=== PATIENT | male | born 1995 | race Caucasian/White ===

== ENCOUNTER 2016-11-02 08:33 | Day surgery (SDC) | payer OTHER ==
[2016-10-25 16:27] VITALS: BMI 33.3
[~2016-11-02 08:33] MED LIST: BACITRACIN 50,000 UNIT, POLYMYXIN B 500,000 UNIT in SODIUM CHLORIDE 0.9% IRRIGATIO 1,00... IRRIGATION ONE; CLINDAMYCIN 600 MG in DEXTROSE 5% IN WATER 50 ML IVPB ONE; DEXAMETHASONE SOD PHOSPHATE 10 MG/ML 1 ML VIAL IV ONE; FAMOTIDINE 20 MG/2 ML VIAL IV PRN; HYDROmorphone 1 MG/ML 1 ML SYRINGE IVP PRN; LACTATED RINGERS 1,000 ML IV SCH; LIDOCAINE 1% 20 ML VIAL (10MG/ML) FOR IV START INTRADERMA PRN; MIDAZOLAM 2 MG/2 ML VIAL IV PRN; ONDANSETRON 4 MG/2 ML VIAL IVP ONE; SCOPOLAMINE 1.5MG/72HR PATCH TRANSDERM ONE
[2016-11-02 09:28] VITALS: TEMP 98
[2016-11-02] MEDS ORDERED: PHENYLEPHRINE-0.9% NACL SYG 1 MG/10 ML SYRINGE ONE (11:02)
[2016-11-02] MEDS ORDERED: fentaNYL (PF) 50 MCG/ML 2 ML AMP ONE (11:02)
[2016-11-02] MEDS ORDERED: PROPOFOL 10 MG/ML 20 ML VIAL IV ONE (11:02)
[2016-11-02] MEDS ORDERED: MIDAZOLAM 2 MG/2 ML VIAL ONE (11:02)
[2016-11-02] MEDS ORDERED: VECURONIUM 10 MG VIAL IV ONE (11:02)
[2016-11-02] MEDS ORDERED: LIDOCAINE 1% INJ 10MG/ML (20 ML MDV) ONE (11:02)
[2016-11-02] MEDS ORDERED: GLYCOPYRROLATE 0.2 MG/ML 2 ML VIAL ONE ×2 (11:02)
[2016-11-02] MEDS ORDERED: NEOSTIGMINE 1 MG/ML 10 ML VIAL ONE (11:02)
[2016-11-02] MEDS ORDERED: SUCCINYLCHOLINE CHLORIDE 100 MG/5 ML SYR IV ONE (11:02)
[2016-11-02] MEDS ORDERED: LIDOCAINE 0.5%-EPI 1:200,000 50 ML VIAL SQ ONE (11:38)
[2016-11-02] MEDS ORDERED: GELATIN SPONGE,ABSORB (LARGE) 1 EACH SPONGE TOPICAL ONE (11:38)
[2016-11-02] MEDS ORDERED: THROMBIN (BOVINE) 5,000 UNIT VIAL TOPICAL ONE (11:39)
--- NOTE | 2016-11-02 12:05 | FL ---
FLUOROSCOPY 4 seconds of fluoroscopy time were utilized during lumbar discectomy. 1 images document the procedure .
[2016-11-02] MEDS ORDERED: methylPREDNISolone ACETATE 80 MG/ML 1 ML VIAL INTRAARTIC ONE (12:11)
[2016-11-02] MEDS ORDERED: KETOROLAC 30 MG/ML 1 ML VIAL IVP PRN (12:33)
[2016-11-02] MEDS ORDERED: HYDROmorphone 1 MG/ML 1 ML SYRINGE IVP PRN ×2 (12:33)
[2016-11-02] MEDS ORDERED: DIAZEPAM 5 MG TAB PO PRN (12:33)
[2016-11-02] MEDS ORDERED: HYDROcodone/APAP 5-325MG 1 EACH TAB PO PRN ×2 (12:33)
[2016-11-02] MEDS ORDERED: BENZOCAINE/MENTHOL LOZENG 1 EACH LOZENGE MUCOUS MEM PRN (12:33)
[2016-11-02] MEDS ORDERED: ONDANSETRON 4 MG/2 ML VIAL IVP PRN (12:33)
[2016-11-02] MEDS ORDERED: IBUPROFEN 600 MG TAB PO PRN (12:33)
--- NOTE | 2016-11-02 12:43 | P.OP ---
Date of Procedure: 11/02/16 Preoperative Diagnosis: Herniated nucleus pulposis L5-S1 Postoperative Diagnosis: Same plus degenerative disc disease L5-S1 Anesthesia: GETA Pathology: none sent Condition: stable Disposition: PACU Description of Procedure: BRIEF OPERATIVE NOTE Preoperative Diagnosis: Herniated nucleus pulposis L5-S1 Postoperative Diagnosis: Same plus degenerative disc disease L5-S1 Procedure: Laminectomy and decompression L5-S1 Discectomy for decompression L5-S1 Use of fluoroscopic guidance Surgeon: Dr. Andujar Structural Layout Worker: Jean-Paul Castaneda is present throughout the entire the case persistence during positioning, dissection, exposure, visualization, and all crucial elements of the case as well as closure. Anesthesia: General anesthesia Estimated blood loss: Approximately 50 mL Complications: None apparent Components implanted: None Disposition: To recovery room in good stable condition. OPERATIVE INDICATIONS The patient has been having issues in their lower back and lower extremities. He was found have a disc herniation L5-S1 on the left which correlated well with his low back and left lower extremity symptoms. The patient has been through conservative treatment. He does not have any lasting benefit despite aggressive conservative treatment. We discussed various treatment options including surgery, and the patient wishes to proceed with surgery We discussed the risk, patient's alternatives and benefits of surgery including but not limited to, risk of bleeding risk of infection, risk of need for further surgery , risk of decreased, loss of motion, loss of function, nerve damage, paralysis, heart attack, blindness and . OPERATIVE SUMMARY After discussing all the risks, patient alternatives and benefits at length, the patient elected to proceed with surgical intervention, signed informed consent, and presented for their procedure. The patient was seen and examined in the preoperative holding area and the surgical site was marked. The patient was given antibiotics and brought to the operating room. The patient was sedated and intubated by anesthesia in standard fashion. The patient was positioned on to the operating room table in a prone position on the appropriate frame which was well-padded and well molded. We were careful to pad any bony prominences and pressure points. We were careful to maintain the patient's cervical spine and good neutral alignment and position throughout. The patient was prepped and draped in a normal standard fashion. An appropriate timeout and keystone protocol performed. We were able to proceed with the surgery. Fluoroscopy was utilized to establish the appropriate level. The local wound area was infiltrated with local anesthetic. An incision was made at the midline longitudinally over the appropriate levels over L5-S1. Dissection was taken down subcutaneously to the level of the fascia which was split midline. Dissection was taken over the lamina. Intraoperative fluoroscopy was taken which showed a marker at the appropriate level at L5-S1. With the appropriate level positively confirmed, we were able to proceed with laminectomy. The wound was copiously irrigated and suctioned dry as had been done periodically throughout the case. I performed a laminectomy with a combination of curettes and a high-speed bur and Kerrison rongeurs. A small medial facetectomy was performed again further access. A partial foraminotomy was also performed. Portions of the ligamentum flavum were taken down to expose the dura and traversing nerve root. I was able to mobilize the traversing nerve root and gain access to the disc space. Note was made of obvious compression from the disc. Protecting the soft tissue structures, a small annulotomy was established. I was able to perform discectomy and remove any extruded disc fragments and any loose fragments from within the disc itself. There were multiple large extruded disc fragments which were removed. There is some significant disc desiccation noted. I tried to preserve the disc annulus that appeared stable. There were no further extruded fragments noted. There is no evidence of dural tear or leak. Good hemostasis maintained. The wound was copiously irrigated and suctioned dry. Good decompression and discectomy was noted. We were able to proceed with closure. The fascia was closed for a watertight closure. The subcuticular tissue was closed with absorbable suture. The wound was cleaned and dried and dressed with the appropriate dressing. The drapes were broken down. The patient was gently rolled back onto their hospital bed being careful to maintain their cervical spine and good neutral alignment and position. They were woken up by anesthesia, extubated, and brought to the recovery room in good stable condition. The patient will be admitted to the hospital for observation and for appropriate postoperative care, medical management and monitoring. We will continue to follow them closely about the postoperative course.
[2016-11-02] MEDS ORDERED: SODIUM CHLORIDE 0.9% 1,000 ML IV SCH (12:45)
[2016-11-02] MEDS ORDERED: HYDROmorphone 1 MG/ML 1 ML SYRINGE IVP ONE ×2 (13:00→13:05)
[2016-11-02 13:19] VITALS: RESP 16
[2016-11-02] MEDS ORDERED: ONDANSETRON 4 MG/2 ML VIAL IVP ONE (13:45)
[2016-11-02 14:38] VITALS: BP 110/63; PULSE 86
[2016-11-02] MEDS ORDERED: CLINDAMYCIN 900 MG in DEXTROSE 5% IN WATER 50 ML IVPB SCH ×2 (18:00)
== END 2016-11-02 14:52 | disposition home or self-care (01) ==
LOC: OR 08:33
PROVIDERS: ATTEND Orthopaedic Surgery Orthopaedic Surgery of the Spine
DX: M51.27 Other intervertebral disc displacement, lumbosacral region (principal); M51.37 Other intervertebral disc degeneration, lumbosacral region; Z88.0 Allergy status to penicillin; Z91.040 Latex allergy status; Z79.891 Long term (current) use of opiate analgesic
CPT/HCPCS: 63047; J2250; J1040; J2710; J2405; J2001; J3010; J1885; J1170; J2370; J0330; J2704